=== PATIENT | female | born 1990 | race Two or more races ===

== ENCOUNTER 2016-11-07 13:52 | Emergency (ER) | payer OTHER ==
[2016-11-07 14:04] VITALS: BP 106/74; PULSE 97; TEMP 98.7; BMI 24.3
[2016-11-07] MEDS ORDERED: predniSONE 20 MG TABLET (UD) PO ONE (14:08)
[2016-11-07] MEDS ORDERED: predniSONE 20 MG TABLET (UD) ONE (14:22)
[2016-11-07] MEDS ORDERED: ALBUTEROL SO4 2.5/IPRATROPIUM 0.5 INH SOL 3 ML VIAL.NEB. NEB ONE (14:22)
[2016-11-07] MEDS: ALBUTEROL SO4 2.5/IPRATROPIUM 0.5 INH SOL 3 ML VIAL.NEB. NEB SCH ×3 (14:27→15:28)
--- NOTE | 2016-11-07 14:40 | PDOC ---
History of Present Illness - General Chief Complaint: Asthma Stated Complaint: ASTHMA Time Seen by Provider: 11/07/16 14:08 History Source: Patient - History of Present Illness Timing/Duration: reports: other Severity: reports: moderate Associated Symptoms: reports: cough, shortness of breath, wheezing Past History - Past Medical History Allergies/Adverse Reactions: Allergies Allergy/AdvReac Type Severity Reaction Status Date / Time acetaminophen Allergy Unknown Verified 11/07/16 14:04 Home Medications: Ambulatory Orders Albuterol Sulfate Inhaler - [Ventolin Hfa Inhaler -] 1 - 2 inh PO Q4H 11/07/16 Montelukast Na [Singulair -] 10 mg PO HS 11/07/16 Nebulizer [Nasoneb Nasal Nebulizer] 1 each MC 11/07/16 Prednisone [Deltasone -] 40 mg PO DAILY #8 tablet 11/07/16 Asthma: Yes - Surgical History Appendectomy: Yes - Immunization History Immunization Up to Date: Yes - Suicide/Smoking/Psychosocial Hx Smoking History: Never smoked Number of Cigarettes Smoked Daily: 2 Information on smoking cessation initiated: No Hx Alcohol Use: No Drug/Substance Use Hx: No Review of Systems - Review of Systems Constitutional: No: Chills, Fever Respiratory: Yes: Cough, Shortness of Breath, Wheezing *Physical Exam - Vital Signs Last Vital Signs Temp Pulse Resp BP Pulse Ox 98.7 F 97 H 18 106/74 98 11/07/16 14:00 11/07/16 14:00 11/07/16 14:00 11/07/16 14:00 11/07/16 14:00 - Physical Exam General Appearance: Yes: Appropriately Dressed. No: Apparent Distress HEENT: positive: Normal Voice Neck: positive: Supple Respiratory/Chest: positive: Lungs Clear, Normal Breath Sounds. negative: Respiratory Distress Cardiovascular: positive: Regular Rate, S1, S2 Integumentary: positive: Dry, Warm Neurologic: positive: Fully Oriented, Alert, Normal Mood/Affect Medical Decision Making - Medical Decision Making 11/07/16 14:35 26-year-old female, history of asthma, no admissions or intubations, uses Flonase and Ventolin at home, here w/ cough, sob and wheezing x several days, not relieved w/ pumps. States she's had more frequent asthma exacerbations this year presumably because of elevated pollen count. Denies fever or chills. see exam Asthma flare Stable w/ clear chest/lungs -nebs/pred -reassess 11/07/16 15:23 Patient feels better with neb treatment and able to ambulate without shortness of breath. Lungs remain clear. Stable for discharge with Pred burst with smoking cessation strongly encouraged. Patient to follow-up with her PMD as needed *DC/Admit/Observation/Transfer Diagnosis at time of Disposition: Asthma attack - Discharge Dispostion Disposition: HOME Condition at time of disposition: Improved - Prescriptions Prescriptions: Prednisone [Deltasone -] 40 mg PO DAILY #8 tablet - Patient Instructions Printed Discharge Instructions: Asthma -- Adult, Tips to Help You Stop Smoking Additional Instructions: Take medications as directed Follow up with your PMD
== END 2016-11-07 15:28 | disposition home or self-care (01) ==
LOC: JERFT 13:52
PROC: 3E0F7GC Introduction of Other Therapeutic Substance into Respiratory Tract, Via Natural or Artificial Opening (ICD-10-PCS; principal; 2016-11-07)
DX: J45.901 Unspecified asthma with (acute) exacerbation (principal)
CPT/HCPCS: 94640; 99281-25